=== PATIENT | male | born 1995 | race Caucasian/White ===

== ENCOUNTER 2020-05-01 13:44 | Emergency (ER) | payer BC ==
[2020-05-01] MEDS ORDERED: Sodium Chloride 0.9% 1000 ML 1,000 ML IV STA (14:16)
[2020-05-01] MEDS ORDERED: TORAdol 30 mg Injection IV ONE (14:16)
[2020-05-01] MEDS ORDERED: Zofran 4 MG/2 ML VIAL IV ONE (14:16)
[2020-05-01] MEDS ORDERED: Zofran 4 MG/2 ML VIAL ONE (14:20)
[2020-05-01] MEDS ORDERED: TORAdol 30 mg Injection ONE (14:20)
[2020-05-01] MEDS ORDERED: Sodium Chloride 0.9% 1000 ML 1,000 ML ONE (14:20)
[2020-05-01 14:27] LABS: BASOPHIL % 0.2 % (0.0-0.4); Basophil (Absolute #) 0.01 (0-0.4); Eosinophil % 1.8 % (0.00-5.0); Eosinophil (Absolute #) 0.09 (0-0.5); Hematocrit 49.1 % (42-50); Hemoglobin 16.4 gm/dl (12.5-18.0); Lymphocyte (Absolute #) 1.69 (1.0-4.6); Lymphocytes % 34.5 % (24.0-44.0); Mean Cell Volume 96.3 fl (78-100); Mean Corpuscular Hemoglobin 32.2 pg (26-32); Mean Corpuscular Hgb Concent. 33.4 g/dl (32-36); Mean Platelet Volume 11.4 fl (7.5-11.0); Monocyte (Absolute #) 0.51 (0.0-1.3); Monocytes % 10.4 % (0.0-12.0); Neutrophil % 53.1 % (36.0-66.0); Platelet Count 181 K/mm3 (150-450); Red Cell Distribution Width 12.9 % (11.5-14.0); White Blood Count 4.9 K/mm3 (4.0-10.5)
[2020-05-01 14:35] LABS: ALKALINE PHOSPHATASE 68 U/L (38-126); ANION GAP 10.6 MEQ/L (5-15); BLOOD UREA NITROGEN 12 mg/dL (9-20); CHLORIDE 107 mmol/L (98-107); Calcium 9.6 mg/dL (8.4-10.2); Carbon Dioxide 28 mmol/L (22-30); Creatinine 1 0.89 mg/dL (0.66-1.25); Glucose 105 mg/dL (74-106); LIPASE 38 U/L (23-300); Potassium 4.1 mmol/L (3.5-5.1); SGOT/AST 27 U/L (17-59); SGPT/ALT 18 U/L (0-50); SODIUM 142 mmol/L (137-145); Total Protein 8.3 g/dL (6.3-8.2)
--- NOTE | 2020-05-01 14:38 | ERPHSYRPT ---
- History of Present Illness Time Seen by Provider: 05/01/20 14:00 Historian: patient Exam Limitations: no limitations Patient Subjective Stated Complaint: Abdominal/flank pain Triage Nursing Assessment: Patient ambulated back to ED and transferred self to bed. Patient A+O X 3. Patient's skin pink, warm and dry. Patient complains of right lower abdominal intermittent, sharp pain 8/10 that radiates to right flank. Patient's abdomen flat and soft with BS X 4. Patient also complains of N/V. Patient states he had been urinating blood last night. Patient states he has a history of kidney stones. Physician History: 24 years old male with a history of kidney stones presented in the ER with right flank pain off and on for almost 1 week with history of hematuria intermittently. Patient reports he has been taking [id number] pain medication with symptomatic relief. His pain and hematuria improved but came back again this morning with severe sharp shooting pain in the right flank with radiation to right groin which woke him up from sleep. He denies any hematuria today. Pain is aggravated with movements and palpation associated with nausea and multiple episodes of nonprojectile, nonbilious vomiting. He denies any hematemesis. Patient reports symptoms similar to last time when he had a kidney stone. He denies any fever or chills associated with it. Denies any testicular pain or swelling. Timing/Duration: day(s) (5), worse Activities at Onset: rest Quality: burning, sharpness Abdominal Pain Onset Location: RLQ, suprapubic, flank Pain Radiation: groin Severity of Pain-Max: severe Severity of Pain-Current: moderate Modifying Factors: Improves With: movement, palpation Associated Symptoms: fatigue, nausea, vomiting Previous symptoms: same symptoms as today Allergies/Adverse Reactions: No Known Drug Allergies Allergy (Verified 05/01/20 13:54) Hx Tetanus, Diphtheria Vaccination/Date Given: No Hx Influenza Vaccination/Date Given: No Hx Pneumococcal Vaccination/Date Given: No Immunizations Up to Date: Yes Travel Risk - International Travel Have you traveled outside of the country in past 3 weeks: No - Coronavirus Screening Are you exhibiting any of the following symptoms?: No Close contact with a COVID-19 positive Pt in past 14-21 Days: No - Review of Systems Constitutional: No Symptoms Eyes: No Symptoms Ears, Nose, & Throat: No Symptoms Respiratory: No Symptoms Cardiac: No Symptoms Abdominal/Gastrointestinal: Abdominal Pain, Nausea, Vomiting Genitourinary Symptoms: Dysuria, Hematuria Musculoskeletal: No Symptoms Skin: No Symptoms Neurological: No Symptoms Psychological: No Symptoms Endocrine: No Symptoms Hematologic/Lymphatic: No Symptoms Immunological/Allergic: No Symptoms - Past Medical History Pertinent Past Medical History: No Neurological History: No Pertinent History ENT History: No Pertinent History Cardiac History: No Pertinent History Respiratory History: No Pertinent History Endocrine Medical History: No Pertinent History Musculoskeletal History: No Pertinent History GI Medical History: No Pertinent History History: No Pertinent History Psycho-Social History: No Pertinent History Male Reproductive Disorders: No Pertinent History - Past Surgical History Past Surgical History: Yes Neuro Surgical History: No Pertinent History Cardiac: No Pertinent History Respiratory: No Pertinent History Gastrointestinal: No Pertinent History Genitourinary: No Pertinent History Musculoskeletal: No Pertinent History Male Surgical History: No Pertinent History Other Surgical History: cleft lip - Social History Smoking Status: Current every day smoker How long have you smoked: years Exposure to second hand smoke: Yes Drug Use: none Patient Lives Alone: No - Nursing Vital Signs Nursing Vital Signs: Initial Vital Signs Temperature 97.7 F 05/01/20 13:56 Pulse Rate 57 L 05/01/20 13:56 Respiratory Rate 18 05/01/20 13:56 Blood Pressure 136/85 05/01/20 13:56 O2 Sat by Pulse Oximetry 100 05/01/20 13:56 Pain Scale Pain Intensity 8 - Physical Exam General Appearance: no apparent distress Eye Exam: PERRL/EOMI, eyes nml inspection Ears, Nose, Throat Exam: normal ENT inspection, pharynx normal Neck Exam: normal inspection, supple, full range of motion Respiratory Exam: normal breath sounds, lungs clear Cardiovascular Exam: regular rate/rhythm, normal heart sounds Gastrointestinal/Abdomen Exam: soft, normal bowel sounds, tenderness (right f;ank/RLQ) Back Exam: normal inspection, CVA tenderness Extremity Exam: normal inspection Neurologic Exam: alert, oriented x 3, cooperative Skin Exam: normal color SpO2 Interpretation: normal SpO2: 100 O2 Delivery: Room Air - Course Nursing assessment & vital signs reviewed: Yes Ordered Tests: Active Orders 24 hr Category Date Time Status IV Insertion STAT Care 05/01/20 14:16 Active NPO (ED) STAT Care 05/01/20 14:16 Active ABDOMEN AND PELVIS W/0 CONTRAS [CT] Stat Exams 05/01/20 14:41 Taken CBC W DIFF Stat Lab 05/01/20 14:16 Completed CMP Stat Lab 05/01/20 13:45 Completed CULTURE,URINE Stat Lab 05/01/20 13:45 Received LIPASE Stat Lab 05/01/20 13:45 Completed UA W/RFX UR CULTURE Stat Lab 05/01/20 13:45 Completed Medication Summary Generic Name Dose Route Start Last Admin Trade Name Freq PRN Reason Stop Dose Admin Ceftriaxone Sodium/Dextrose 1 g in 50 mls @ 100 mls/hr 05/01/20 15:13 05/01/20 15:22 Rocephin 1 Gm-D5w 50 Ml Bag IV 05/01/20 15:42 100 mls/hr STAT STA 100 mls/hr Administration Tamsulosin HCl 0.4 mg 05/02/20 10:00 05/01/20 15:20 Flomax 0.4 Mg PO 06/01/20 09:59 0.4 mg DAILY KARYN Administration Discontinued Medications Generic Name Dose Route Start Last Admin Trade Name Trevorq PRN Reason Stop Dose Admin Sodium Chloride 1,000 mls @ 999 mls/hr 05/01/20 14:16 05/01/20 14:31 Sodium Chloride 0.9% 1000 Ml IV 05/01/20 15:16 999 mls/hr .Q1H1M STA Administration Sodium Chloride Confirm 05/01/20 14:20 Sodium Chloride 0.9% 1000 Ml Administered 05/01/20 14:21 Dose 1,000 mls @ ud .ROUTE .STK-MED ONE Ceftriaxone Sodium/Dextrose Confirm 05/01/20 15:18 Rocephin 1 Gm-D5w 50 Ml Bag Administered 05/01/20 15:19 Dose 1 g in 50 mls @ ud IV .STK-MED ONE Ketorolac Tromethamine 30 mg 05/01/20 14:16 05/01/20 14:36 Toradol 30 Mg Injection IV 05/01/20 14:17 30 mg STAT ONE Administration Ketorolac Tromethamine Confirm 05/01/20 14:20 Toradol 30 Mg Injection Administered 05/01/20 14:21 Dose 30 mg .ROUTE .STK-MED ONE Ondansetron HCl 4 mg 05/01/20 14:16 05/01/20 14:35 Zofran 4 Mg/2 Ml Vial IV 05/01/20 14:17 4 mg STAT ONE Administration Ondansetron HCl Confirm 05/01/20 14:20 Zofran 4 Mg/2 Ml Vial Administered 05/01/20 14:21 Dose 4 mg .ROUTE .STK-MED ONE Tamsulosin HCl Confirm 05/01/20 15:18 Flomax 0.4 Mg Administered 05/01/20 15:19 Dose 0.4 mg .ROUTE .STK-MED ONE Lab/Rad Data: Laboratory Result Diagrams 05/01/20 14:16 05/01/20 13:45 Laboratory Results 05/01/20 05/01/20 05/01/20 Range/Units 14:16 13:45 13:45 WBC 4.9 (4.0-10.5) K/mm3 RBC 5.10 (4.1-5.6) M/mm3 Hgb 16.4 (12.5-18.0) gm/dl Hct 49.1 (42-50) % MCV 96.3 (78-100) fl MCH 32.2 H (26-32) pg MCHC 33.4 (32-36) g/dl RDW 12.9 (11.5-14.0) % Plt Count 181 (150-450) K/mm3 MPV 11.4 H (7.5-11.0) fl Gran % 53.1 (36.0-66.0) % Eos # (Auto) 0.09 (0-0.5) Absolute Lymphs (auto) 1.69 (1.0-4.6) Absolute Monos (auto) 0.51 (0.0-1.3) Lymphocytes % 34.5 (24.0-44.0) % Monocytes % 10.4 (0.0-12.0) % Eosinophils % 1.8 (0.00-5.0) % Basophils % 0.2 (0.0-0.4) % Absolute Granulocytes 2.60 (1.4-6.9) Basophils # 0.01 (0-0.4) Sodium 142 (137-145) mmol/L Potassium 4.1 (3.5-5.1) mmol/L Chloride 107 (98-107) mmol/L Carbon Dioxide 28 (22-30) mmol/L Anion Gap 10.6 (5-15) MEQ/L BUN 12 (9-20) mg/dL Creatinine 0.89 (0.66-1.25) mg/dL Estimated GFR > 60.0 ML/MIN Glucose 105 (74-106) mg/dL Calcium 9.6 (8.4-10.2) mg/dL Total Bilirubin 0.60 (0.2-1.3) mg/dL AST 27 (17-59) U/L ALT 18 (0-50) U/L Alkaline Phosphatase 68 (38-126) U/L Serum Total Protein 8.3 H (6.3-8.2) g/dL Albumin 5.0 (3.5-5.0) g/dL Lipase 38 (23-300) U/L Urine Color YELLOW (YELLOW) Urine Appearance SLIGHTLY CLOUDY (CLEAR) Urine pH 6.0 (5-6) Ur Specific [place] 1.019 (1.005-1.025) Urine Protein 30 (Negative) Urine Ketones NEGATIVE (NEGATIVE) Urine Blood LARGE (0-5) [place]/ul Urine Nitrite NEGATIVE (NEGATIVE) Urine Bilirubin NEGATIVE (NEGATIVE) Urine Urobilinogen NEGATIVE (0-1) mg/dL Ur Leukocyte Esterase NEGATIVE (NEGATIVE) Urine WBC (Auto) 11-15 (0-5) /HPF Urine RBC (Auto) >101 (0-2) /HPF U Epithel Cells (Auto) NONE (FEW) /HPF Urine Bacteria (Auto) NONE SEEN (NEGATIVE) /HPF Unidentified Crystals 2-5 (NEGATIVE) /HPF Urine Mucus (Auto) SLIGHT (NEGATIVE) /HPF Urine Culture Reflexed YES (NO) Urine Glucose NEGATIVE (NEGATIVE) mg/dL - Progress Progress: improved, re-examined Progress Note: 05/01/20 15:32 24 years old is evaluated for right flank pain with urinary symptoms. He is given IV fluid and Toradol. He has a normal white count, grossly unremarkable chemistries. I have obtained CT without contrast which showed 4 mm mid ureteral stone on the right with minimal obstruction. Urinalysis consistent with UTI. I have given him a dose of Rocephin in here and will continue with Levaquin to go home. He is also given Flomax and will continue to go home as well. On reevaluation pain is almost completely gone. I believe patient will pass stone on his own. No signs of sepsis at present. We will continue with antibiotic and outpatient urology follow-up recommended. Discussed signs symptoms of worsening needing return to ER which he seems understanding. Stable for discharge. Counseled pt/family regarding: lab results, diagnosis, need for follow-up, rad results - Departure Departure Disposition: Home Clinical Impression: Ureterolithiasis, Acute UTI (urinary tract infection) Condition: Stable Critical Care Time: No Referrals: YISSEL AVILA [Primary Care Provider] - (2 days for reevaluation) GAVIOTA BRANDT [COURTESY STAFF] - (2 days for reevaluation. Call for appointment.) Instructions: Kidney Stones (DC) Additional Instructions: Take Tylenol/ibuprofen as needed. Follow-up with urology/primary care for reevaluation. Return to ER for intractable pain/vomiting/fever chills or difficulty urination. Prescriptions: Ibuprofen 600 mg PO Q6HPRN PRN 10 Days #20 tablet PRN Reason: Pain Hydrocodone/APAP 5-325 Tab^^^ [[place] 5-325 Tablet^^^] 1 tab PO Q6HPRN PRN #10 tablet MDD 6 PRN Reason: Pain Levofloxacin [Levaquin 500 MG Tablet] 500 mg PO DAILY #7 tablet
[2020-05-01 14:40] LABS: Appearance SLIGHTLY CLOUDY (CLEAR); Bilirubin NEGATIVE (NEGATIVE); Blood LARGE Ery/ul (0-5); Glucose NEGATIVE (NEGATIVE); Ketones NEGATIVE (NEGATIVE); Leukocyte Esterase NEGATIVE (NEGATIVE); Mucus SLIGHT /HPF (NEGATIVE); Nitrite NEGATIVE (NEGATIVE); Protein,Urine Dip 30 (Negative); Specific Gravity 1.019 (1.005-1.025); Urobilinogen NEGATIVE mg/dL (0-1)
[2020-05-01 14:55] LABS: RBC >101 /HPF (0-2)
[2020-05-01 14:59] LABS: Bacteria NONE SEEN /HPF (NEGATIVE)
[2020-05-01] MEDS ORDERED: ROCEPHIN 1 Gm-D5w 50 ml Bag** 1 G/50 ML IVPB IV STA (15:13)
[2020-05-01] MEDS ORDERED: ROCEPHIN 1 Gm-D5w 50 ml Bag** 1 G/50 ML IVPB IV ONE (15:18)
[2020-05-01] MEDS ORDERED: Flomax 0.4 MG ONE (15:18)
[2020-05-01 15:39] VITALS: BP 120/63; PULSE 60; O2SAT 98
--- NOTE | 2020-05-01 21:16 | XRAY ---
Indication: Right flank pain. Hematuria. History of stones. Multiple contiguous axial images obtained through the abdomen and pelvis without contrast using renal stone protocol. Comparison: March 09, 2016. Lung bases remain clear. Heart is not enlarged. There is new 3-4 mm proximal right ureter calculus, approximately L4 level. Proximal right ureter is prominent and there is mild hydronephrosis consistent with obstructive uropathy. No perinephric fluid. Noncontrasted stomach and bowel loops appear nonobstructed. Normal air-filled appendix. Mild diffuse scattered fecal debris throughout. Remaining liver, gallbladder, pancreas, spleen, adrenal glands, left kidney, left ureter, bladder, and aorta appear unremarkable for noncontrast exam. Osseous structures intact again with mild levoscoliosis. Impression: 1. New 3-4 mm proximal right ureter calculus producing obstructive uropathy as detailed. 2. New diffuse fecal stasis without obstruction. Comment: Preliminary interpretation was made by [facility]. No critical discrepancy.
[2020-05-02] MEDS ORDERED: Flomax 0.4 MG PO SCH (10:00)
== END 2020-05-01 15:47 | disposition home or self-care (01) ==
LOC: ED 13:44
DX: N20.1 Calculus of ureter (principal); N39.0 Urinary tract infection, site not specified
CPT/HCPCS: 36000; 36415; 74176; 80053; 81001; 83690; 85025; 87086; 96360; 96365; 96374; 96375; 99284; J0696; J1885; J2405; A9270-GY

== ENCOUNTER 2021-05-04 13:53 | Emergency (ER) | payer BC ==
[2021-05-04 14:14] VITALS: BP 115/73; PULSE 83
[2021-05-04] MEDS ORDERED: DELTASONE 20 MG ONE (14:19)
[2021-05-04] MEDS ORDERED: DELTASONE 20 MG PO ONE (14:21)
--- NOTE | 2021-05-04 15:18 | ERPHSYRPT ---
- History of Present Illness Time Seen by Provider: 05/04/21 14:30 Source: patient Patient Subjective Stated Complaint: To er c/o bee sting to left hand onset approx 1 hour [employer] tender. Swelling to left hand and 3rd digit pt attempted benadryl at home but states swelling keeps increasing Triage Nursing Assessment: Bee sting to left hand swelling noted, no sob wheezing or resp sx noted at this time. pt is p/w/d resp easy [id number] Physician History: Patient is a 25-year-old male presents to our ED for evaluation of bee sting to his left hand and third digit. Incident occurred approximately 1 hour prior to arrival. Patient took a dose of Benadryl 25 mg. Patient states the swelling did not improve. Patient became concerned and came to our ED. Patient has no systemic manifestations. No difficulty breathing. No stridor. No wheezing. No hives. No pruritus. Patient otherwise asymptomatic. Patient is otherwise healthy. He voices no other complaints or concerns at this time. Patient requesting a work note. Timing/Duration: today Severity: mild Modifying Factors: Improves With: nothing Associated Symptoms: denies symptoms Allergies/Adverse Reactions: No Known Drug Allergies Allergy (Verified 05/01/20 13:54) Hx Tetanus, Diphtheria Vaccination/Date Given: No Hx Influenza Vaccination/Date Given: No Hx Pneumococcal Vaccination/Date Given: No Travel Risk - International Travel Have you traveled outside of the country in past 3 weeks: No - Coronavirus Screening Are you exhibiting any of the following symptoms?: Yes Symptoms: Cough: New Onset Close contact with a COVID-19 positive Pt in past 14-21 Days: No - Vaccine Status Have you recieved a Covid-19 vaccination: No - Review of Systems Constitutional: No Symptoms, No Fever, No Chills Eyes: No Symptoms Ears, Nose, & Throat: No Symptoms Respiratory: No Symptoms, No Cough, No Dyspnea Cardiac: No Symptoms, No Chest Pain, No Edema, No Syncope Abdominal/Gastrointestinal: No Symptoms, No Abdominal Pain, No Nausea, No Vomiting, No Diarrhea Genitourinary Symptoms: No Symptoms, No Dysuria Musculoskeletal: No Symptoms, No Back Pain, No Neck Pain Skin: No Symptoms, No Rash Neurological: No Symptoms, No Dizziness, No Focal Weakness, No Sensory Changes Psychological: No Symptoms Endocrine: No Symptoms Hematologic/Lymphatic: No Symptoms Immunological/Allergic: No Symptoms All Other Systems: Reviewed and Negative - Past Medical History Pertinent Past Medical History: No Neurological History: No Pertinent History ENT History: No Pertinent History Cardiac History: No Pertinent History Respiratory History: No Pertinent History Endocrine Medical History: No Pertinent History Musculoskeletal History: No Pertinent History GI Medical History: No Pertinent History History: No Pertinent History Psycho-Social History: No Pertinent History Male Reproductive Disorders: No Pertinent History - Past Surgical History Past Surgical History: Yes Neuro Surgical History: No Pertinent History Cardiac: No Pertinent History Respiratory: No Pertinent History Gastrointestinal: No Pertinent History Genitourinary: No Pertinent History Musculoskeletal: No Pertinent History Male Surgical History: No Pertinent History Other Surgical History: cleft lip, lithotripsy - Social History Smoking Status: Current every day smoker How long have you smoked: years Exposure to second hand smoke: Yes Drug Use: none Patient Lives Alone: No - Nursing Vital Signs Nursing Vital Signs: Initial Vital Signs Temperature 97.8 F 05/04/21 14:06 Pulse Rate 83 05/04/21 14:06 Respiratory Rate 18 05/04/21 14:06 Blood Pressure 115/73 05/04/21 14:06 O2 Sat by Pulse Oximetry 98 05/04/21 14:06 Pain Scale Pain Intensity 5 - Physical Exam General Appearance: no apparent distress, alert Eye Exam: PERRL/EOMI, eyes nml inspection Ears, Nose, Throat Exam: normal ENT inspection, TMs normal, pharynx normal, moist mucous membranes Neck Exam: normal inspection, non-tender, supple, full range of motion Respiratory Exam: normal breath sounds, lungs clear, No respiratory distress Cardiovascular Exam: regular rate/rhythm, normal heart sounds, normal peripheral pulses Gastrointestinal/Abdomen Exam: soft, normal bowel sounds, No tenderness, No mass Back Exam: normal inspection, normal range of motion, No CVA tenderness, No vertebral tenderness Extremity Exam: normal inspection, normal range of motion, pelvis stable, other (Left hand is mildly swollen. Extremities neurovascular intact distally. Compartments are soft. Cap refill less than 2 seconds. No lymphangitis. No axillary lymphadenopathy. There is no evidence of a retained stinger.) Neurologic Exam: alert, oriented x 3, cooperative, normal mood/affect, nml cerebellar function, nml station & gait, sensation nml, No motor deficits Skin Exam: normal color, warm, dry, No rash Lymphatic Exam: No adenopathy SpO2 Interpretation: normal SpO2: 98 O2 Delivery: Room Air - Course Nursing assessment & vital signs reviewed: Yes Ordered Tests: Medication Summary Discontinued Medications Generic Name Dose Route Start Last Admin Trade Name Carmelo PRN Reason Stop Dose Admin Prednisone 60 mg 05/04/21 14:21 05/04/21 14:23 Deltasone 20 Mg PO 05/04/21 14:22 60 mg STAT ONE Administration Prednisone Confirm 05/04/21 14:19 Deltasone 20 Mg Administered 05/04/21 14:20 Dose 60 mg .ROUTE .STK-MED ONE - Progress Progress: improved Progress Note: Patient observed in our ED. No progression of symptoms. Patient received a dose of prednisone in our ED a prescription for prednisone was forwarded to patient's pharmacy. Patient also received a prescription for epi autoinjector in the event that he develops severe worsening symptoms. Patient agrees to follow-up with primary care doctor within 48 hours for reevaluation. No indication for antibiotics at this time. Will discharge home. Work note was provided to patient. 05/04/21 15:25 Counseled pt/family regarding: diagnosis, need for follow-up - Departure Departure Disposition: Home Clinical Impression: Bee sting Condition: Stable Critical Care Time: No Referrals: YISSEL AVILA [Primary Care Provider] - Additional Instructions: Discharge/Care Plan BILLINGSLEYBONY MCKAY was seen on 05/04/21 in the Emergency Room. The patient was counseled regarding Diagnosis,Lab results, Imaging studies, need for follow up and when to return to the Emergency Room. Prescriptions given: Discharge Note I have spoken with the patient and/or caregivers. I have explained the patient's condition, diagnosis and treatment plan based on the information available to me at this time. I have answered the patient's and/or caregiver's questions and addressed any concerns. The patient and/or caregivers have as good understanding of the patient's diagnosis, condition and treatment plan as can be expected at this point. The vital signs have been stable. The patient's condition is stable and appropriate for discharge from the emergency department. The patient will pursue further outpatient evaluation with the primary care p hysician or other designated or consulting physician as outlined in the discharge instructions. The patient and/or caregivers are agreeable to this plan of care and follow-up instructions have been explained in detail. The patient and/or caregivers have received these instruction. The patient/and or caregivers are aware that any significant change in condition or worsening of symptoms should prompt an immediate return to this or the closest emergency department or call 911. Prescriptions: Prednisone 10 mg [Deltasone 10 mg] 40 mg PO DAILY 3 Days #12 tablet Epinephrine [Epipen] 0.3 mg IM DAILY 1 Days #2 ml
[2021-05-04 15:28] VITALS: O2SAT 97
== END 2021-05-04 15:29 | disposition home or self-care (01) ==
LOC: ED 13:53
DX: T63.441A Toxic effect of venom of bees, accidental (unintentional), initial encounter (principal); M79.89 Other specified soft tissue disorders
CPT/HCPCS: 99283; A9270-GY